=== PATIENT | male | born 1965 | race Hispanic/Latino ===

== ENCOUNTER 2018-05-28 16:30 | Emergency (ER) | payer OTHER ==
[~2018-05-28] VITALS: Ht 170.2 cm; Wt 86.2 kg
[2018-05-28] MEDS ORDERED: BACLOFEN10 MG PO (18:39)
[2018-05-28] MEDS ORDERED: KETOROLAC TROME10 MG PO (18:39)
== END 2018-05-28 19:02 | disposition home or self-care (01) ==
LOC: ED 16:30
DX: M99.01 Segmental and somatic dysfunction of cervical region (principal); M25.511 Pain in right shoulder; V43.52XA Car driver injured in collision with other type car in traffic accident, initial encounter
CPT/HCPCS: 72125; 73030; 96374; 99284; J1885

== ENCOUNTER 2022-01-29 09:33 | Emergency (ER) | payer OTHER ==
[~2022-01-29] VITALS: Ht 170.2 cm; Wt 78.9 kg
[~2022-01-29 09:33] MED LIST: BACLOFEN10 MG PO; KETOROLAC TROME10 MG PO
--- OUTSIDE RECORDS SUMMARY | 2022-01-29 09:40 | XMS ---
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 Tobin VISIT COUNT (12 MO.) 1 NICHOLAS Corona TOTAL 1 NOTE: Visits indicate total known visits. ED/UCC VISIT TRACKING (12 MO.) 01/29/2022 09:33 NICHOLAS Baum OR TYPE: Emergency COMPLAINT: - L HAND INJURY INPATIENT VISIT TRACKING (12 MO.) No inpatient visits to display in this time frame [email or web address]
[2022-01-29] MEDS ORDERED: METFORMIN HCL500 MG PO (09:48)
[2022-01-29] MEDS ORDERED: ADVIL200 MG PO (09:49)
[2022-01-29] MEDS ORDERED: NAPROSYN500 MG PO (09:58)
[2022-01-29] MEDS ORDERED: CEPHALEXIN500 M1 PO (09:58)
== END 2022-01-29 10:45 | disposition home or self-care (01) ==
LOC: ED 09:33
DX: S61.432A Puncture wound without foreign body of left hand, initial encounter (principal); W26.8XXA Contact with other sharp object(s), not elsewhere classified, initial encounter; Y99.0 Civilian activity done for income or pay
CPT/HCPCS: 73130; 99283-25; A9270